=== PATIENT | male | born 1970 | race American Indian/Alaskan Native ===

== ENCOUNTER 2017-05-11 14:23 | Emergency (ER) | payer BC ==
[2017-05-11 14:25] VITALS: BMI 28.0
[2017-05-11] MEDS ORDERED: Sodium Chloride 0.9% 1,000 ML IV SCH (14:45)
--- NOTE | 2017-05-11 14:48 | ED PDOC ---
Arrival/HPI - General Chief Complaint: Abdominal Pain Time Seen by Provider: 05/11/17 14:31 Historian: Patient - History of Present Illness Narrative History of Present Illness (Text): 05/11/17 14:47 A 46 year old male was brought in by EMS to the emergency department complaining of sudden onset right sided abdominal pain that developed about three hours ago. Patient reports pain started while he was driving. Reports pain doesn't radiate. Denies having these symptoms in the past. Reports nausea but denies any vomiting, back pain, dysuria or any other complaints at this time. Denies chest pain. Denies shortness of breath. Denies upper abdominal pain. Denies numbness or tingling to arms or legs. Denies leg pain or swelling. Denies any pleuritic discomfort. States pain was sudden onset and then "on and off" in intensity but persistent. Time/Duration: 1-3 hours Symptom Onset: Sudden Symptom Course: Unchanged Activities at Onset: Other (driving) Past Medical History - Provider Review Nursing Documentation Reviewed: Yes - Infectious Disease Hx of Infectious Diseases: None - Psychiatric Hx Substance Use: No - Anesthesia Hx Anesthesia: No Hx Anesthesia Reactions: No Hx Malignant Hyperthermia: No Family/Social History - Physician Review Nursing Documentation Reviewed: Yes Family/Social History: No Known Family HX Smoking Status: Never Smoked Hx Alcohol Use: No Hx Substance Use: No Allergies/Home Meds Allergies/Adverse Reactions: Allergies No Known Allergies Allergy (Verified 05/11/17 14:37) Review of Systems - Review of Systems Constitutional: absent: Fevers Eyes: absent: Eye Pain ENT: absent: Hearing Changes, Sore Throat, Rhinorrhea, Sinus Congestion Respiratory: absent: SOB, Cough, Sputum Cardiovascular: absent: Chest Pain, Palpitations, Edema, Calf Pain, DREW Gastrointestinal: Abdominal Pain (RLQ), Nausea. absent: Stool Changes, Constipation, Diarrhea, Vomiting, Food Intolerance Genitourinary Male: absent: Dysuria, Frequency, Hematuria, Urinary Output Changes Musculoskeletal: absent: Back Pain, Joint Swelling Skin: absent: Rash Neurological: absent: Headache, Dizziness, Focal Weakness Endocrine: absent: Polyuria Hemo/Lymphatic: absent: Easy Bleeding Psychiatric: absent: Depression Physical Exam - Physical Exam Narrative Physical Exam (Text): 05/11/17 14:46 Head: Atraumatic. Normocephalic. Eyes: PERRL. EOMI. Conjunctivae are not pale. ENT: Mucous membranes are moist and intact. Oropharynx is clear and symmetric. Neck: Supple. Full ROM. No JVD. No lymphadenopathy. Cardiovascular: Regular rate. Regular rhythm. No murmurs, rubs, or gallops. Distal pulses are 2+ and symmetric. Pulmonary/Chest: No evidence of respiratory distress. Clear to auscultation bilaterally. No wheezing, rales or rhonchi. Abdominal: Mild RLQ abdominal pain; no inguinal masses or hernias palpated. No organomegaly. Good bowel sounds. No pulsatile masses. No upper abdominal pain. Genitourinary Male: No testicular pain, no penile discharge Back: No CVA tenderness. Extremities: No edema. No cyanosis. No clubbing. Full range of motion in all extremities. No calf tenderness. Skin: Skin is warm and dry. No petechiae. No purpura. Neurological: Alert, awake, and oriented to person, place, time, and situation. Normal speech. Motor and sensory exam intact. Psychiatric: Good eye contact. Normal interaction, affect, and behavior. Vital Signs Reviewed: Yes Vital Signs Temp Pulse Resp BP Pulse Ox 05/11/17 18:21 98.8 F 100 H 20 136/75 99 05/11/17 17:30 98.0 F 101 H 18 136/75 100 05/11/17 15:31 98.0 F 101 H 18 145/78 100 05/11/17 15:17 69 18 134/71 98 05/11/17 14:34 98.9 F 72 18 136/79 99 Temperature: Afebrile Blood Pressure: Normal Pulse: Regular Respiratory Rate: Normal Appearance: Positive for: Well-Appearing, Non-Toxic, Comfortable Pain Distress: Mild Mental Status: Positive for: Alert and Oriented X 3 Medical Decision Making ED Course and Treatment: 05/11/17 14:45 Impression: A 46 year old male with RLQ abdominal pain. Differential Diagnosis included but are not limited to: renal colic, muscle strain, appendicitis Plan: -- CT abd/pelvis -- EKG -- labs -- Urinalysis -- IV fluids, Toradol -- Reassess and disposition Progress Notes: Patient speaks Kiswahili. Estonian translation also supplemented to verify history and physical. Pain sudden onset for several hours intermittent, persistent right sided with no palpable masses, no radiation of pain. No chest pain or sob. IV toradol given with complete resolution of pain. Urinalysis with microscopic blood. CT abdomen/pelvis unremarkable. I reviewed with patient limitations of noncontrast ct, although with several hours of observation in the Emergency department he remains asymptomatic. I reviewed with patient possible kidney stone as pain sudden onset and intermittent with ua with microscopic blood. He continues to deny urinary symptoms or groin or testicle pain. As he remains pain free, will d/w with ibuprofen prn, keflex as there is some bacteria in Urinalysis, although remains afebrile with no nausea or discomfort. Advised follow-up with urology and PMD. 05/11/17 18:28 - Lab Interpretations Lab Results: 05/11/17 14:40 05/11/17 14:40 Lab Results 05/11/17 14:40: Sodium 142, Potassium 4.2, Chloride 104, Carbon Dioxide 26, Anion Gap 16, BUN 12, Creatinine 0.7 L, Est GFR ( Amer) > 60, Est GFR ( Non-Af Amer) > 60, Random Glucose 128 H, Calcium 9.9, Total Bilirubin 0.2, AST 31, ALT 40, Alkaline Phosphatase 235 H, Total Protein 7.8, Albumin 4.1, Globulin 3.7, Albumin/Globulin Ratio 1.1 05/11/17 14:40: Urine Color Yellow, Urine Appearance Turbid, Urine pH 5.0, Ur Specific [place] >= 1.030, Urine Protein Trace H, Urine Glucose (UA) Negative, Urine Ketones Negative, Urine Blood Large H, Urine Nitrate Negative, Urine Bilirubin Negative, Urine Urobilinogen 0.2, Ur Leukocyte Esterase Negative, Urine RBC Tntc, Urine WBC Negative, Ur Epithelial Cells 1 - 3, Calcium Oxalate Crystal Few, Urine Bacteria Trace 05/11/17 14:40: WBC 5.5, RBC 5.26, Hgb 14.2, Hct 41.2 L, MCV 78.3 L, MCH 27.0, MCHC 34.5, RDW 13.7, Plt Count 234, MPV 9.6, Gran % 55.6, Lymph % (Auto) 35.3 H , [place] % (Auto) 7.3 H, Eos % (Auto) 1.6, Baso % (Auto) 0.2, Gran # 3.04, Lymph # (Auto) 1.9, [place] # (Auto) 0.4, Eos # (Auto) 0.1, Baso # (Auto) 0.01 I have reviewed the lab results: Yes - RAD Interpretation Radiology Orders: 05/11/17 14:40 ABD & PELVIS W/O PO OR IV CONT [CT] Stat 05/11/17 15:23 ABDOMEN COMPLETE [US] Stat - EKG Interpretation Interpreted by ED Physician: Yes Type: 12 lead EKG - Medication Orders Current Medication Orders: Sodium Chloride (Sodium Chloride 0.9%) 1,000 mls @ 100 mls/hr IV .Q10H DIANA Last Admin: 05/11/17 14:49 Dose: 100 mls/hr eMAR Start Stop Document 05/11/17 14:49 [facility] (Rec: 05/11/17 14:50 [facility] [id number]) Intravenous Solution Start Date 05/11/17 Start Time 14:50 Discontinued Medications Ketorolac Tromethamine (Toradol) 15 mg IVP ONCE ONE Stop: 05/11/17 14:42 Last Admin: 05/11/17 14:50 Dose: 15 mg MAR Pain Assessment Document 05/11/17 14:50 [facility] (Rec: 05/11/17 14:50 [facility] [id number]) Pain Reassessment Is this a pain reassessment? No Sleep Is patient sleeping during reassessment? No Presence of Pain Presence of Pain Yes Pain Scale Used Pain Scale Used Numeric Location Left, Right or Bilateral Right Pain Location Body Site Abdomen Description Description Cramping Intensity of Pain at present 6 IVP Administration Document 05/11/17 14:50 [facility] (Rec: 05/11/17 14:50 [facility] [id number]) Charges for Administration # of IVP Administrations 1 - Scribe Statement The provider has reviewed the documentation as recorded by the Macy Gay Provider Scribe Attestation: All medical record entries made by the Macy were at my direction and personally dictated by me. I have reviewed the chart and agree that the record accurately reflects my personal performance of the history, physical exam, medical decision making, and the department course for this patient. I have also personally directed, reviewed, and agree with the discharge instructions and disposition. Disposition/Present on Arrival - Present on Arrival Any Indicators Present on Arrival: No History of DVT/PE: No History of Uncontrolled Diabetes: No Urinary Catheter: No History of Decub. Ulcer: No History Surgical Site Infection Following: None - Disposition Have Diagnosis and Disposition been Completed?: Yes Diagnosis: Abdominal pain, Renal colic Disposition: HOME/ ROUTINE Disposition Time: 18:31 Patient Plan: Discharge Condition: GOOD Discharge Instructions (ExitCare): Acute Abdomen (Belly Pain), Adult (DC) Additional Instructions: For any return of ANY pain or any symptoms, return to the Emergency Department immediately. For any fevers, any difficulty urinating, any rash, any testicle pain, any swelling to groin, any upper abdominal pain or chest pain or shortness of breath, get rechecked immediately. Please follow-up with a urologist to re-evaluate symptoms and urinalysis. Take ibuprofen as needed for pain. Please contact your doctor or call one of the physicians/clinics you have been referred to that are listed on the Patient Visit Information form that is included in your discharge packet. Bring any paperwork you were given at discharge with you along with any medications you are taking to your follow up visit. Our treatment cannot replace ongoing medical care by a primary care provider (PCP) outside of the emergency department. Thank you for allowing the [facility] team to be part of your care today. If you had an X-Ray or CT scan: A Radiologist will review the ED reading if any change in treatment is needed we will contact you. If you had a blood, urine, or wound culture: It will take several days for the results, if any change in treatment is needed we will contact you. Prescriptions: Cephalexin [cephalexin] 500 mg PO BID #14 cap Ibuprofen [Motrin Tab] 400 mg PO Q8 PRN #12 tab PRN Reason: Pain, Mild (1-3) Referrals: PCP,NO [Primary Care Provider] - Follow up with primary Henry Trent MD [Staff Provider] - Follow up with primary Forms: [employer] (Kiswahili)
[2017-05-11 15:01] LABS: BASO # 0.01 K/mm3 (0.0-2.0); BASO % 0.2 % (0.0-3.0); EOS # 0.1 (0.0-0.7); EOS % 1.6 % (1.5-5.0); GRAN # 3.04 (1.4-6.5); GRAN % 55.6 % (50.0-68.0); HEMOGLOBIN 14.2 g/dL (14.0-18.0); LYMPH # 1.9 (1.2-3.4); LYMPH % 35.3 % (22.0-35.0); MEAN CELL VOLUME 78.3 fl (80.0-105.0); MEAN CORPUSCULAR HGB CONC 34.5 g/dl (31.0-37.0); MEAN PLATELET VOLUME 9.6 fl (7.0-11.0); MONO # 0.4 (0.1-0.6); MONO % 7.3 % (1.0-6.0); RBC 5.26 10^6/uL (3.5-6.1); RED CELL DISTRIBUTION WIDTH 13.7 % (11.5-14.5); WHITE BLOOD COUNT 5.5 10^3/ul (4.5-11.0)
[2017-05-11 15:10] LABS: ALB/GLOB RATIO 1.1 (1.1-1.8); ALBUMIN 4.1 g/dL (3.0-4.8); ALT/SGPT 40 U/L (7-56); AST/SGOT 31 U/L (17-59); BLOOD UREA NITROGEN 12 mg/dL (7-21); CALCIUM 9.9 mg/dL (8.4-10.5); GFR AFRICAN-AMERICAN > 60; GFR NON-AFRICAN AMERICAN > 60
--- NOTE | 2017-05-11 15:21 | CT ---
PROCEDURE: CT Abdomen and Pelvis without intravenous contrast HISTORY: right abdominal pain COMPARISON: None. TECHNIQUE: Without contrast. Contrast Dose: Radiation dose: Total exam DLP = Total exam DLP = 486 mGy-cm. This CT exam was performed using one or more of the following dose reduction techniques: Automated exposure control, adjustment of the mA and/or kV according to patient size, and/or use of iterative reconstruction technique. FINDINGS: LOWER THORAX: Unremarkable. LIVER: Unremarkable. No gross lesion or ductal dilatation. GALLBLADDER AND BILE DUCTS: Unremarkable. PANCREAS: Unremarkable. No gross lesion or ductal dilatation. SPLEEN: Unremarkable. ADRENALS: Unremarkable. No mass. KIDNEYS AND URETERS: Unremarkable. No hydronephrosis. No solid mass. VASCULATURE: Unremarkable. No aortic aneurysm. BOWEL: Unremarkable. No obstruction. No gross mural thickening. APPENDIX: Unremarkable. Normal appendix. PERITONEUM: Unremarkable. No free fluid. No free air. LYMPH NODES: Unremarkable. No enlarged lymph nodes. BLADDER: Unremarkable. REPRODUCTIVE: Unremarkable. BONES: No acute fracture. OTHER FINDINGS: None. IMPRESSION: Unremarkable non contrast enhanced CT of the abdomen and pelvis.
[2017-05-11 15:22] LABS: URINE BILIRUBIN NEGATIVE (NEGATIVE); URINE BLOOD LARGE (NEGATIVE); URINE GLUCOSE (UA) NEGATIVE (NEGATIVE); URINE LEUKOCYTE ESTERASE NEGATIVE Leu/uL (NEGATIVE); URINE PROTEIN TRACE mg/dL (<30 mg/dL); URINE UROBILINOGEN 0.2 E.U./dL (<1 E.U./dL)
[2017-05-11 15:23] LABS: URINE APPEARANCE TURBID (CLEAR); URINE COLOR YELLOW (YELLOW)
[2017-05-11 15:25] LABS: URINE BACTERIA TRACE (NEG); URINE CALCIUM OXALATE CRYSTALS FEW /hpf; URINE RBC TNTC /hpf (0-2); URINE WBC NEGATIVE /hpf (0-6)
[2017-05-11 17:32] VITALS: BP 136/75
--- NOTE | 2017-05-11 18:07 | CARD ---
APPROVED REPORT EKG Measurement Heart [id number] <Conclusion> Normal sinus rhythm Normal ECG
--- NOTE | 2017-05-11 18:14 | US ---
HISTORY: Upper abdominal pain COMPARISON: Comparison made with concurrent CT scan abdomen pelvis TECHNIQUE: Sonographic evaluation of the abdomen. FINDINGS: LIVER: The liver exhibits relatively normal size measuring approximately 15 cm in CC dimension. Liver demonstrates smooth contour and normal echotexture. No evidence of ascites. GALLBLADDER: Gallbladder is physiologically distended. No evidence of intraluminal gallbladder calculi. No pericholecystic fluid collections or sonographic Luis sign. COMMON BILE DUCT: Common bile duct measures approximately 4.1 mm. No stones. No dilatation. PANCREAS: Unremarkable as visualized. No mass. No ductal dilatation. RIGHT KIDNEY: Measures 9.5 x 4.7 x 5.2cm. Normal echogenicity. No calculus, mass, or hydronephrosis. LEFT KIDNEY: Measures 11.8 x 7.4 x 5.8cm. Few very tiny calcifications seen scattered about the collecting system left kidney on CT scan not appreciated on this exam. Questionable artifact versus dromedary hump left kidney Re- demonstrated is a small cyst lower pole left kidney measuring approximately 1.4 cm in greatest dimension. SPLEEN: Normal in size and contour. No mass. AORTA: No aneurysmal dilatation. IVC: Unremarkable. OTHER FINDINGS: None. IMPRESSION: Small cyst lower pole left kidney. Few very tiny calcifications scattered about the left renal collecting system seen on prior CT scan not appreciated on this exam. No evidence of hydronephrosis. Questionable artifact versus dromedary hump left kidney
[2017-05-11 18:22] VITALS: PULSE 100; RESP 20; TEMP 98.8; O2SAT 99
== END 2017-05-11 18:38 | disposition home or self-care (01) ==
LOC: ED 14:23
DX: N23 Unspecified renal colic (principal)
CPT/HCPCS: 74176; 76700; 80053; 81001; 85025; 93005; 96374; 99284; J1885; J7040